=== PATIENT | male | born 1940 | race Caucasian/White ===

== ENCOUNTER → 2017-09-07 | Outpatient (CLI) | payer MEDICARE ==
[~2017-09-07] MED LIST: ALVERT PO; ASPI81CH PO; CALGLU500 PO; CEFU250T47 PO; CENTRUM SILVER1 EAC2 PO; CHOL10002 PO; FISH1000 PO; LISI20 PO; MULVITA PO; TOCO400 PO
== END ==
LOC: LAB SHORT 08:17 → PLD 08:17
DX: D48.5 Neoplasm of uncertain behavior of skin (principal)
CPT/HCPCS: 88305

== ENCOUNTER 2020-12-20 18:13 | Emergency (ER) | payer OTHER ==
[~2020-12-20] VITALS: Ht 190.5 cm; Wt 97.5 kg
== END 2020-12-20 19:10 | disposition left against medical advice (07) ==
LOC: ER 18:13
DX: Z53.21 Procedure and treatment not carried out due to patient leaving prior to being seen by health care provider (principal)